=== PATIENT | male | born 1995 | race Two or more races ===

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

== ENCOUNTER 2017-04-02 08:21 | Emergency (ER) | payer SELFPAY ==
[~2017-04-02] VITALS: Ht 160 cm; Wt 59.0 kg
[~2017-04-02 08:21] MED LIST changes: +AZASITE2.5 ML OP; +VIBRAMYCIN100 MG ORAL
[2017-04-02 08:44] VITALS: BP 145/75
[2017-04-02] MEDS ORDERED: Acetaminophen 500mg (ES) tab ORAL ONE (09:00)
[2017-04-02 09:41] LABS: MEAN CORPUSCULAR HEMOGLOBIN 30.6 PG (27.0-31.0); MEAN CORPUSCULAR HGB CONC 33.1 G/DL (32.0-36.0); MEAN CORPUSCULAR VOLUME 92 FL (80-99); MEAN PLATELET VOLUME 6.9 FL (6.5-10.1); PLATELET COUNT 262 K/UL (150-450); RED BLOOD COUNT 5.41 M/UL (4.70-6.10); RED CELL DISTRIBUTION WIDTH 10.5 % (11.6-14.8); WHITE BLOOD COUNT 17.3 K/UL (4.8-10.8)
--- NOTE | 2017-04-02 09:45 | Emergency Room Report ---
History of Present Illness General Chief Complaint: Vomiting Source: Patient Present Illness HPI 21-year-old male presents ED presents ED complaining of abdominal pain and vomiting. Started last night after eating chicken. Notes cramping abdominal pain with nausea and vomiting. 8 at 10, nonradiating. Fevers or chills. Denies chest pain or shortness of breath. Also complaining of headache after multiple episodes of vomiting. No other aggravating factors. Denies any other associated symptoms Allergies: Coded Allergies: ASPIRIN (Verified Allergy, Unknown, 04/02/17) Patient History Past Medical History: HTN Past Surgical History: none Pertinent Family History: none Social History: Denies: smoking, alcohol use, drug use Immunizations: UTD Reviewed Nursing Documentation: PMH: Agreed, PSxH: Agreed Nursing Documentation-PMH Hx Hypertension: Yes Review of Systems All Other Systems: negative except mentioned in HPI Physical Exam Vital Signs Date Time Temp Pulse Resp B/P (MAP) Pulse Ox O2 Delivery O2 Flow Rate FiO2 04/02/17 08:35 97.9 76 14 145/75 97 Room Air Sp02 EP Interpretation: reviewed, normal General Appearance: no apparent distress, alert, GCS 15, non-toxic Head: normocephalic, atraumatic Eyes: bilateral eye normal inspection, bilateral eye PERRL ENT: hearing grossly normal, normal pharynx, no angioedema, normal voice Neck: full range of motion, supple/symm/no masses Respiratory: chest non-tender, lungs clear, normal breath sounds, speaking full sentences Cardiovascular #1: regular rate, rhythm, no edema Cardiovascular #2: 2+ carotid (R), 2+ carotid (L), 2+ radial (R), 2+ radial (L) , 2+ dorsalis pedis (R), 2+ dorsalis pedis (L) Gastrointestinal: normal bowel sounds, non tender, soft, non-distended, no guarding, no rebound Rectal: deferred Genitourinary: normal inspection, no CVA tenderness Musculoskeletal: back normal, gait/station normal, normal range of motion, non- tender Neurologic: alert, oriented x3, responsive, motor strength/tone normal, sensory intact, speech normal Psychiatric: judgement/insight normal, memory normal, mood/affect normal, no suicidal/homicidal ideation Reflexes: 3+ bicep (R), 3+ bicep (L), 3+ tricep (R), 3+ tricep (L), 3+ knee (R) , 3+ knee (L) Skin: normal color, no rash, warm/dry, well hydrated Lymphatic: no adenopathy Medical Decision Making Diagnostic Impression: Primary Impression: Gastritis Qualified Codes: K29.00 - Acute gastritis without bleeding ER Course Hospital Course 21-year-old M presents to ED with N/V after eating last night differential diagnosis: gastritis, SBO, cholecystits Clinical course Patient placed on stretcher. On monitoring specialist. After initial history and physical I ordered labs, IV fluids, Zofran Labs - noted leukocytosis, no electrolyte abnormalities Upon reassessment, patient states symptoms have improved. findings consistent with gastritis I feel this is a highly complex case requiring extensive working including EKG/ Rhythm strip, Xray/CT/US, Blood/urine lab work, repeat exams while in ED, and administration of strong opiates/narcotics for pain control, admission to hospital or close patient follow up. Diagnosis - gastritis Stable and discharged to home with prescriptions for zofran. Followup with PMD. Return to ED if symptoms recur or worsen Labs Test 04/02/17 09:22 White Blood Count 17.3 K/UL (4.8-10.8) Red Blood Count 5.41 M/UL (4.70-6.10) Hemoglobin 16.6 G/DL (14.2-18.0) Hematocrit 50.0 % (42.0-52.0) Mean Corpuscular Volume 92 FL (80-99) Mean Corpuscular Hemoglobin 30.6 PG (27.0-31.0) Mean Corpuscular Hemoglobin Concent 33.1 G/DL (32.0-36.0) Red Cell Distribution Width 10.5 % (11.6-14.8) Platelet Count 262 K/UL (150-450) Mean Platelet Volume 6.9 FL (6.5-10.1) Neutrophils (%) (Auto) % (45.0-75.0) Lymphocytes (%) (Auto) % (20.0-45.0) Monocytes (%) (Auto) % (1.0-10.0) Eosinophils (%) (Auto) % (0.0-3.0) Basophils (%) (Auto) % (0.0-2.0) Differential Total Cells Counted 100 Neutrophils % (Manual) 88 % (45-75) Lymphocytes % (Manual) 4 % (20-45) Monocytes % (Manual) 8 % (1-10) Eosinophils % (Manual) 0 % (0-3) Basophils % (Manual) 0 % (0-2) Band Neutrophils 0 % (0-8) Platelet Estimate Adequate Platelet Morphology Normal Red Blood Cell Morphology Normal Sodium Level 140 MMOL/L (136-145) Potassium Level 3.9 MMOL/L (3.5-5.1) Chloride Level 102 MMOL/L (98-107) Carbon Dioxide Level 29 MMOL/L (21-32) Anion Gap 9 mmol/L (5-15) Blood Urea Nitrogen 13 mg/dL (7-18) Creatinine 1.0 MG/DL (0.55-1.30) Estimat Glomerular Filtration Rate > 60 mL/min (>60) Glucose Level 122 MG/DL (74-106) Calcium Level 9.7 MG/DL (8.5-10.1) Total Bilirubin 1.3 MG/DL (0.2-1.0) Direct Bilirubin 0.2 MG/DL (0.0-0.3) Aspartate Amino Transf (AST/SGOT) 18 U/L (15-37) Alanine Aminotransferase (ALT/SGPT) 14 U/L (12-78) Alkaline Phosphatase 76 U/L (46-116) Total Protein 8.3 G/DL (6.4-8.2) Albumin 4.6 G/DL (3.4-5.0) Globulin 3.7 g/dL Albumin/Globulin Ratio 1.2 (1.0-2.7) Last Vital Signs Date Time Temp Pulse Resp B/P (MAP) Pulse Ox O2 Delivery O2 Flow Rate FiO2 04/02/17 08:44 97.9 80 14 145/75 97 Room Air Status: improved Disposition: HOME, SELF-CARE Condition: Stable Scripts Ondansetron Odt* (ZOFRAN ODT*) 4 Mg Tab.rapdis 4 MG ORAL Q6H Y for Nausea & Vomiting, #30 TAB 0 Refills Prov: SANTOS BLAND M.D. 04/02/17 Referrals: NOT CHOSEN [facility]/,REFERRING (PCP) SANTOS BLAND M.D. Apr 02, 2017 09:45
[2017-04-02 10:01] LABS: BAND NEUTROPHILS % (MANUAL) 0 % (0-8); BASOPHILS % (MANUAL) 0 % (0-2); EOSINOPHILS % (MANUAL) 0 % (0-3); LYMPHOCYTES % (MANUAL) 4 % (20-45); NEUTROPHILS % (MANUAL) 88 % (45-75); PLATELET ESTIMATE ADEQUATE; PLATELET MORPHOLOGY NORMAL; TOTAL CELLS COUNTED 100
[2017-04-02 10:05] LABS: ANION GAP 9 mmol/L (5-15); CALCIUM 9.7 MG/DL (8.5-10.1); CARBON DIOXIDE 29 MMOL/L (21-32); CHLORIDE 102 MMOL/L (98-107); GLOMERULAR FILTRATION RATE > 60 mL/min (>60); POTASSIUM 3.9 MMOL/L (3.5-5.1); SODIUM 140 MMOL/L (136-145)
[2017-04-02 10:15] LABS: ALANINE AMINOTRANSFERASE 14 U/L (12-78); ALBUMIN/GLOBULIN RATIO 1.2 (1.0-2.7); ASPARTATE AMINO TRANSFERASE 18 U/L (15-37); TOTAL PROTEIN 8.3 G/DL (6.4-8.2)
[2017-04-02 10:16] LABS: BILIRUBIN,DIRECT 0.2 MG/DL (0.0-0.3)
[2017-04-02] MEDS ORDERED: ZOFRAN ODT4 MG ORAL (10:40)
[2017-04-02 10:48] VITALS: BP 145/75
== END 2017-04-02 10:48 | disposition home or self-care (01) ==
LOC: EMR 08:47
DX: K29.70 Gastritis, unspecified, without bleeding (principal)
CPT/HCPCS: 36415; 80053; 82248; 85007; 85025; 96361; 96374; 99284; J2405

== ENCOUNTER 2017-07-14 20:55 | Emergency (ER) | payer SELFPAY ==
[~2017-07-14] VITALS: Ht 157.5 cm; Wt 68.0 kg
[~2017-07-14 20:55] MED LIST changes: +ZOFRAN ODT4 MG ORAL
[2017-07-14 21:00] VITALS: BP 108/72
[2017-07-14] MEDS ORDERED: Morphine Sulfate 4mg/ml Inj IVP ONE (21:30)
[2017-07-14] MEDS ORDERED: TYLENOL EXTRA500 MG ORAL (22:36)
[2017-07-14] MEDS ORDERED: ROBAXIN500 MG PO (22:36)
[2017-07-14] MEDS ORDERED: Methocarbamol 500mg tab ORAL ONE (22:45)
[2017-07-14 23:00] VITALS: BP 134/67
[2017-07-14 23:15] VITALS: BP 134/67
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
--- NOTE | 2017-07-15 10:04 | Diagnostic Imaging Report ---
Indication: Pain Technique: Spiral acquisitions obtained through the cervical spine. No IV contrast utilized. Multiplanar reconstructions were generated. Total dose length product 282.72 mGycm. CTDIvol(s) 12.94 mGy. Dose reduction achieved using automated exposure control. Comparison: none Findings: Bony alignment is normal. No acute fractures. No dislocations. Vertebral body heights are preserved. The disc spaces are preserved. At C5-6, there is broad-based central posterior disc protrusion which is mild. However, due to short pedicles, this is result in borderline narrowing of the spinal canal. At the remaining levels, no significant disc bulge or protrusion, spinal stenosis, or neural foraminal stenosis. The included extraspinal soft tissues are unremarkable. Impression: No acute bony trauma Borderline spinal stenosis at C5-6 due to mild posterior disc protrusion and short pedicles. This agrees with the preliminary interpretation provided overnight by [facility]. The CT scanner at [facility] is accredited by the [employer] and the scans are performed using protocols designed to limit radiation exposure to as low as reasonably achievable to attain images of sufficient resolution adequate for diagnostic evaluation.
--- NOTE | 2017-07-15 10:32 | Diagnostic Imaging Report ---
Indication: Pain, trauma Technique: Spiral acquisitions obtained through the thoracic spine. No IV contrast utilized. Multiplanar reconstructions were generated. Total dose length product 763.23 mGycm. CTDIvol(s) 22.02 mGy. Dose reduction achieved using automated exposure control Comparison: none Findings: No acute fractures. No dislocations. Vertebral body heights are preserved. The disc spaces are preserved. Note disc bulge or protrusion, spinal stenosis, or neural foraminal stenosis demonstrated. The included extraspinal soft tissues are unremarkable. Impression: Negative This agrees with the preliminary interpretation provided overnight by [facility]. The CT scanner at [facility] is accredited by the [employer] and the scans are performed using protocols designed to limit radiation exposure to as low as reasonably achievable to attain images of sufficient resolution adequate for diagnostic evaluation.
== END 2017-07-14 23:15 | disposition home or self-care (01) ==
LOC: EDBD 20:55 → EMR 21:20
DX: S16.1XXA Strain of muscle, fascia and tendon at neck level, initial encounter (principal); V09.9XXA Pedestrian injured in unspecified transport accident, initial encounter; Y92.410 Unspecified street and highway as the place of occurrence of the external cause; M54.9 Dorsalgia, unspecified; I10 Essential (primary) hypertension; M50.222 Other cervical disc displacement at C5-C6 level
CPT/HCPCS: 72125; 72128; 96374; 99284; J2270

== ENCOUNTER 2019-08-25 08:28 | Emergency (ER) | payer SELFPAY ==
[~2019-08-25] VITALS: Ht 162.6 cm; Wt 65.8 kg
[~2019-08-25 08:28] MED LIST changes: +ROBAXIN500 MG PO; +TYLENOL EXTRA500 MG ORAL
--- NOTE | 2019-08-25 08:40 | NUR ---
ED Nurse Note: Patient walked in c/o green color discharge from penis for 4 days. Pt is alert and oriented x4, Afebrile. Urine sent to lab.
[2019-08-25 08:48] VITALS: BP 125/73
[2019-08-25] MEDS ORDERED: Lidocaine 1% MPF 10mg/ml 5ml INJ ONE (09:00)
[2019-08-25] MEDS ORDERED: metroNIDAZOLE 500mg tab ORAL ONE (09:00)
[2019-08-25] MEDS ORDERED: Azithromycin 250mg tab ORAL ONE (09:00)
[2019-08-25] MEDS ORDERED: VIBRAMYCIN100 MG ORAL (09:01)
--- NOTE | 2019-08-25 09:02 | Emergency Room Report ---
History of Present Illness General Chief Complaint: Male Urogenital Problems Source: Patient Present Illness HPI Disclaimer: Please note that this report is being documented using [employer] technology. This can lead to erroneous entry secondary to incorrect interpretation by the dictating instrument. HPI: 23-year-old male presents for evaluation of penile discharge. Symptoms present for several days. He notes a greenish discharge from the meatus as well as dysuria without hematuria. He notes pain in the testicles and lower pelvis pressure as well. No trouble initiating urination. Denies urinary retention or incontinence. Denies diarrhea, fecal incontinence or mucoid discharge. Denies painful bowel movements. Concerned he may have an STI as he has had chlamydia in the past. He presents with a sexual partner experiencing similar symptoms. Denies fever chills vomiting or diarrhea. PMH: STI PSH: Appendectomy Allergies: Denies Social Hx: Denies Allergies: Coded Allergies: No Known Allergies (Unverified , 08/25/19) COVID-19 Screening Contact w/high risk pt: No Recent Travel to affected area: No Experienced COVID-19 symptoms?: No Nursing Documentation-PMH Past Medical History: No History, Except For Hx Hypertension: Yes Review of Systems All Other Systems: negative except mentioned in HPI Physical Exam Vital Signs Date Time Temp Pulse Resp B/P (MAP) Pulse Ox O2 Delivery O2 Flow Rate FiO2 08/25/19 08:34 98.2 72 18 125/73 (90) 96 Room Air General: Awake and alert, no acute distress HEENT: NC/AT. EOMI. Resp: Normal work of breathing Abdomen: Soft, nondistended, mild tenderness suprapubic region : Uncircumcised male. Easily retractable foreskin. Green discharge at the urethral meatus without blood. No obvious injury. Testes in anatomic position. No scrotal edema or erythema. Tenderness over the epididymis bilaterally. Positive cremasteric reflex. Skin: Intact. No abrasions, laceration or rash over the exposed skin MSK: Normal tone and bulk. Moving all extremities. No obvious deformity. Neuro: Awake and alert. Mentating appropriately Medical Decision Making Diagnostic Impression: Primary Impression: Urethritis Additional Impression: Epididymitis ER Course 23-year-old male presents for evaluation of penile discharge and testicular pain. Patient's history and physical exam consistent with urethritis and epididymitis consistent with sexually transmitted infection. He has had these in the past and states is similar presentation. He is here with a sexual partner who is also experiencing similar symptoms. Will give one-time doses of azithromycin, ceftriaxone and Flagyl. The patient will be discharged with doxycycline for treatment of epididymitis. Referred to STD clinic for testing. Otherwise well-appearing and stable for outpatient follow-up. Can return with any new or worsening symptoms. He understands and agrees with this treatment plan. Last Vital Signs Date Time Temp Pulse Resp B/P (MAP) Pulse Ox O2 Delivery O2 Flow Rate FiO2 08/25/19 08:48 98.2 18 125/73 96 Room Air 08/25/19 08:34 72 Disposition: HOME, SELF-CARE Condition: Stable Scripts Doxycycline Hyclate* (VIBRAMYCIN*) 100 Mg Capsule 100 MG ORAL EVERY 12 HOURS for 7 Days, #14 CAP 0 Refills Prov: Pako Solitario MD 08/25/19 Referrals: [facility] *Patients are seen by appointment only* [facility] Departure Forms: Return to Work Patient Instructions: Epididymitis, Urethritis, Adult Additional Instructions: Please follow-up with your primary care doctor in the next 1 to 3 days to discuss this emergency department visit and for reevaluation. If you have any new or worsening symptoms please return to the emergency department for reevaluation. Please note that this report is being documented using [employer] technology. This can lead to erroneous entry secondary to incorrect interpretation by the dictating instrument. Pako Solitario MD Aug 25, 2019 09:02
[2019-08-25 09:03] LABS: APPEARANCE,URINE CLOUDY; BILIRUBIN, URINE NEGATIVE (NEGATIVE); COLOR,URINE PALE YELLOW; GLUCOSE, URINE (UA) NEGATIVE (NEGATIVE); KETONES,URINE NEGATIVE (NEGATIVE); LEUKOCYTE ESTERASE ,URINE 3+ (NEGATIVE); NITRITE,URINE NEGATIVE (NEGATIVE); PH,URINE 7 (4.5-8.0); PROTEIN,URINE 2+ (NEGATIVE); UROBILINOGEN,URINE NORMAL MG/DL (0.0-1.0)
--- NOTE | 2019-08-25 10:18 | NUR ---
ER DISCHARGE NOTE: Patient is cleared to be discharged per ERMD, pt is aox4, on room air, with stable vital signs. pt was given dc and prescription instructions, pt was able to verbalize understanding, pt id band removed without complications. pt is able to ambulate with steady gait. pt took all belongings.
== END 2019-08-25 10:04 | disposition home or self-care (01) ==
LOC: EMR 09:00
DX: N34.2 Other urethritis (principal); N45.1 Epididymitis; Z90.89 Acquired absence of other organs; I10 Essential (primary) hypertension
CPT/HCPCS: 81003; 87086; 96372; 96374; 99284; J0696